=== PATIENT | female | born 1960 | race Caucasian/White ===

== ENCOUNTER 2018-07-05 23:46 | Emergency (ER) | payer SELFPAY ==
[2018-07-06] MEDS ORDERED: HYDROCODONE/APAP 7.5/325 MG TAB ONE (00:30)
--- NOTE | 2018-07-06 00:50 | ER ---
Nurse's Notes [facility] Name: Jessica Estrada Age: 58 yrs Sex: Female : 1960 Arrival Date: 07/05/2018 Time: 23:47 Bed 15 Private MD: Diagnosis: Left closed radial head fracture Presentation: 07/05 23:50 Presenting complaint: Patient states: Left arm and elbow pain sustained from fall while cc3 skating this evening. Care prior to arrival: None. Mechanism of Injury: Fall while skating. Trauma event details: Injury occurred in the [facility]. 23:50 Acuity: SASCHA 3 cc3 23:50 Method Of Arrival: Ambulatory cc3 23:50 Transition of care: patient was not received from another setting of care. Onset of cc3 symptoms was July 05, 2018. Risk Assessment: Do you want to hurt yourself or someone else? Patient reports no desire to harm self or others. 23:50 Initial Sepsis Screen: Does the patient meet any 2 criteria? No. Patient's initial cc3 sepsis screen is negative. Does the patient have a suspected source of infection? No. Patient's initial sepsis screen is negative. Triage Assessment: 23:50 General: Appears in no apparent distress. uncomfortable, Behavior is calm, cooperative, cc3 appropriate for age. Pain: Complains of pain in left arm, left elbow Pain currently is 8 out of 10 on a pain scale. Quality of pain is described as aching. EENT: Ear canal clear on bilaterally Sclera/Cornea are clear in bilaterally Nares are clear Oral mucosa is moist. Throat is clear bilaterally with gag reflex present. Neuro: Level of Consciousness is awake, alert, obeys commands, Oriented to person, place, time, situation, Appropriate for age. Cardiovascular: Denies chest pain, Patient's skin is warm and dry. Respiratory: Airway is patent Respiratory effort is even, unlabored, Respiratory pattern is regular, symmetrical. GI: Abdomen is round non-distended. : No signs and/or symptoms were reported regarding the genitourinary system. Derm: No signs and/or symptoms reported regarding the dermatologic system. Musculoskeletal: Circulation, motion, and sensation intact. Range of motion: limited in left arm, left elbow Reports pain in left arm, left elbow. Trauma Activation: Physician: ED Physician; Name: ; Notified At: ; Arrived At: Physician: General Surgeon; Name: ; Notified At: ; Arrived At: Physician: Radiology; Name: ; Notified At: ; Arrived At: Physician: Respiratory; Name: ; Notified At: ; Arrived At: Physician: Lab; Name: ; Notified At: ; Arrived At: 23:50 was not activated cc3 Historical: - Allergies: 23:50 No Known Allergies; cc3 - Home Meds: 23:50 atorvastatin oral oral once daily [Active]; aspirin 81 mg Oral chew 1 tab once daily cc3 [Active]; Meclizine Oral 3 times per day [Active]; - PMHx: 23:50 spinal; heart stents in 2016; cc3 - PSHx: 23:50 foot surgery; right ankle surgery; rotator cuff surgery; cc3 - Immunization history: Last tetanus immunization: unknown. - Social history:: Smoking status: Patient uses tobacco products, smokes one-half pack cigarettes per day. - Ebola Screening: : No symptoms or risks identified at this time. Screenin:50 Abuse screen: Denies threats or abuse. Denies injuries from another. Nutritional cc3 screening: No deficits noted. Tuberculosis screening: No symptoms or risk factors identified. Fall Risk Ambulatory Aid- None/Bed Rest/Nurse Assist (0 pts). Gait- Normal/Bed Rest/Wheelchair (0 pts) Mental Status- Oriented to own ability (0 pts). Primary Survey: 23:50 NO uncontrolled hemorrhage observed. A: The patient is alert. Airway: patent, No cc3 supplemental oxygen in use on arrival. Oral cavity: clear, gag reflex present, Trachea midline. Breathing/Chest: Respiratory pattern: regular, Respiratory effort: spontaneous, unlabored, Breath sounds: clear, bilaterally. Chest inspection: symmetrical rise and fall of the chest. Circulation: Heart tones present. Disability Alert. Exposure/Environment: All clothing and personal items were removed. Forensic evidence collection is not deemed to be indicated at this time. Items placed in patient belonging bag. There is no evidence of uncontrolled external bleeding. Obvious injury(ies) are noted at this time: left arm and elbow pain A warming method has been applied: A warm blanket has been provided to the patient. 07/06 00:15 Reassessment Airway Airway Patent Breathing/Chest Respiratory pattern Regular cc3 Respiratory effort Spontaneous Unlabored Breath sounds Clear Chest inspection Symmetrical Circulation Heart tones Present Disability Alert. Secondary Survey: 00:15 HEENT: Head No injury/deformity Face No injury/deformity Eyes: No injury or deformity cc3 noted. to bilateral eyes. Ears: clear bilaterally. Nose: clear to bilateral nares. Throat: No injury or deformity noted. is clear with gag reflex present. Gastrointestinal: Abdomen is soft, non-distended. : No signs and/or symptoms were reported regarding the genitourinary system. Musculoskeletal: Circulation, motion, and sensation intact. Range of motion: limited in left arm, left elbow. Assessment: 07/05 23:50 General: Appears in no apparent distress. uncomfortable, Behavior is calm, cooperative, cc3 appropriate for age. Pain: Complains of pain in left arm, left elbow Pain currently is 8 out of 10 on a pain scale. Quality of pain is described as aching. Neuro: Level of Consciousness is awake, alert, obeys commands, Oriented to person, place, time, situation, Appropriate for age. EENT: No signs and/or symptoms were reported regarding the EENT system. Cardiovascular: Denies chest pain, Patient's skin is warm and dry. Respiratory: Airway is patent Trachea midline Respiratory effort is even, unlabored, Respiratory pattern is regular, symmetrical. GI: Abdomen is round non-distended. : No signs and/or symptoms were reported regarding the genitourinary system. Derm: No signs and/or symptoms reported regarding the dermatologic system. Musculoskeletal: Circulation, motion, and sensation intact. Range of motion: limited in left arm, left elbow. 07/06 00:30 Reassessment: Patient appears in no apparent distress at this time. Patient and/or cc3 family updated on plan of care and expected duration. Pain level reassessed. Patient is alert, oriented x 3, equal unlabored respirations, skin warm/dry/pink. 01:00 Reassessment: Patient appears in no apparent distress at this time. Patient and/or cc3 family updated on plan of care and expected duration. Pain level reassessed. Patient is alert, oriented x 3, equal unlabored respirations, skin warm/dry/pink. Dr. Craig discharged home the patient with prescription given. No IV cannula in situ. Patient left ER vitally stable and ambulatory with her daughter. Patient states feeling better. Vital Signs: 07/05 23:50 BP 174 / 90; Pulse 63; Resp 19 S; Temp 98.1(O); Pulse Ox 98% on R/A; Weight 81.65 kg cc3 (R); Height 5 ft. 6 in. (167.64 cm) (R); Pain 8/10; 07/06 00:50 BP 163 / 89; Pulse 63; Resp 19 S; Pulse Ox 98% on R/A; cc3 07/05 23:50 Body Mass Index 29.05 (81.65 kg, 167.64 cm) cc3 [place] Coma Score: 07/05 23:50 Eye Response: spontaneous(4). Verbal Response: oriented(5). Motor Response: obeys cc3 commands(6). Total: 15. Trauma Score (Adult): 23:50 Eye Response: spontaneous(1); Verbal Response: oriented(1); Motor Response: obeys cc3 commands(2); Systolic BP: > 89 mm Hg(4); Respiratory Rate: 10 to 29 per min(4); [place] Score: 15; Trauma Score: 12 ED Course: 23:47 Patient arrived in ED. am2 23:50 Masoud Craig MD is Attending Physician. ps1 23:50 Arm band placed on right wrist. Patient notified of wait time. cc3 23:50 Patient has correct armband on for positive identification. Bed in low position. Call cc3 light in reach. Side rails up X 1. Pulse ox on. NIBP on. 23:50 Patient maintains SpO2 saturation greater than 95% on room air. cc3 23:50 Thermoregulation: warm blanket given to patient. cc3 23:55 Alicja Johns is Primary Nurse. cc3 07/06 00:10 Triage completed. cc3 00:45 Gustavo Mcclain MD is Referral Physician. ps1 00:47 X-ray completed. Portable x-ray completed in exam room. Patient tolerated procedure kw well. 00:48 Humerus Left XRAY In Process Unspecified. EDMS 00:48 Forearm Left XRAY In Process Unspecified. EDMS 01:00 No provider procedures requiring assistance completed. Patient did not have IV access cc3 during this emergency room visit. Administered Medications: 00:17 Drug: [place] (7.5 mg-325 mg) 1 tabs Route: PO; cc3 00:46 Follow up: Response: No adverse reaction cc3 Intake: 00:17 PO: 200ml (Water); Total: 200ml. cc3 Outcome: 00:49 Discharge ordered by . ps1 01:00 Discharged to home ambulatory, with family. cc3 01:00 Condition: stable 01:00 Discharge instructions given to patient, family, Instructed on discharge instructions, follow up and referral plans. medication usage, Demonstrated understanding of instructions, follow-up care, medications, Prescriptions given X 2. 01:00 Patient's length of stay was not longer than 2 hours. cc3 01:16 Patient left the ED. cc3 Signatures: Dispatcher [employer] EDMS Cesia Langford Amanda am2 Masoud Craig MD MD ps1 Alicja Johns cc3 Corrections: (The following items were deleted from the chart) 02:13 00:30 BP 163 / 89; Pulse 63bpm; Resp 19bpm; Spontaneous; Pulse Ox 98% RA; cc3 cc3
--- NOTE | 2018-07-06 00:50 | EDPHYS ---
Physician Documentation [facility] Name: Jessica Estrada Age: 58 yrs Sex: Female : 1960 Arrival Date: 07/05/2018 Time: 23:47 Bed 15 Private MD: ED Physician Masoud Craig HPI: 07/05 23:58 This 58 yrs old Female presents to ER via Unassigned with complaints of Fall ps1 Injury, Elbow Injury, Arm Pain. 23:58 Patient was roller skating and FOOSH. Now has pain in wrist and elbow. No obvious ps1 deformity. Pain rated as moderate and worse with movement. Not on blood thinners. Did not hit head or have LOC. . Historical: - Allergies: 23:50 No Known Allergies; cc3 - Home Meds: 23:50 atorvastatin oral oral once daily [Active]; aspirin 81 mg Oral chew 1 tab once daily cc3 [Active]; Meclizine Oral 3 times per day [Active]; - PMHx: 23:50 spinal; heart stents in 2016; cc3 - PSHx: 23:50 foot surgery; right ankle surgery; rotator cuff surgery; cc3 - Immunization history: Last tetanus immunization: unknown. - Social history:: Smoking status: Patient uses tobacco products, smokes one-half pack cigarettes per day. - Ebola Screening: : No symptoms or risks identified at this time. ROS: 23:58 Constitutional: Negative for fever, chills, and weight loss, Eyes: Negative for injury, ps1 pain, redness, and discharge, ENT: Negative for injury, pain, and discharge, Cardiovascular: Negative for chest pain, palpitations, and edema, Respiratory: Negative for shortness of breath, cough, wheezing, and pleuritic chest pain, Abdomen/GI: Negative for abdominal pain, nausea, vomiting, diarrhea, and constipation, Back: Negative for injury and pain, Skin: Negative for injury, rash, and discoloration, Neuro: Negative for headache, weakness, numbness, tingling, and seizure. 23:58 MS/extremity: Positive for decreased range of motion, tenderness, of the right wrist and right elbow. Exam: 23:58 Constitutional: This is a well developed, well nourished patient who is awake, alert, ps1 and in no acute distress. Head/Face: Normocephalic, atraumatic. Eyes: Pupils equal round and reactive to light, extra-ocular motions intact. Lids and lashes normal. Conjunctiva and sclera are non-icteric and not injected. ENT: Nares patent. No nasal discharge, no septal abnormalities noted. Tympanic membranes are normal and external auditory canals are clear. Oropharynx with no redness, swelling, or masses, exudates, or evidence of obstruction, uvula midline. Mucous membranes moist. Chest/axilla: Normal chest wall appearance and motion. Nontender with no deformity. No lesions are appreciated. Cardiovascular: Regular rate and rhythm. No gallops, murmurs, or rubs. Normal PMI, no JVD. No pulse deficits. Respiratory: Lungs have equal breath sounds bilaterally, clear to auscultation and percussion. No rales, rhonchi or wheezes noted. No increased work of breathing, no retractions or nasal flaring. Skin: Warm, dry with normal turgor. Normal color with no rashes, no lesions, and no evidence of cellulitis. Neuro: Awake and alert, GCS 15, oriented to person, place, time, and situation. Cranial nerves II-XII grossly intact. Sensory grossly intact. 23:58 Musculoskeletal/extremity: Extremities: grossly normal except: noted in the right elbow and right wrist: pain. Vital Signs: 23:50 BP 174 / 90; Pulse 63; Resp 19 S; Temp 98.1(O); Pulse Ox 98% on R/A; Weight 81.65 kg cc3 (R); Height 5 ft. 6 in. (167.64 cm) (R); Pain 8/10; 07/06 00:50 BP 163 / 89; Pulse 63; Resp 19 S; Pulse Ox 98% on R/A; cc3 07/05 23:50 Body Mass Index 29.05 (81.65 kg, 167.64 cm) cc3 [place] Coma Score: 07/05 23:50 Eye Response: spontaneous(4). Verbal Response: oriented(5). Motor Response: obeys cc3 commands(6). Total: 15. Trauma Score (Adult): 23:50 Eye Response: spontaneous(1); Verbal Response: oriented(1); Motor Response: obeys cc3 commands(2); Systolic BP: > 89 mm Hg(4); Respiratory Rate: 10 to 29 per min(4); [place] Score: 15; Trauma Score: 12 MDM: 23:58 Data reviewed: vital signs, nurses notes. ps1 07/06 00:49 Patient medically screened. ps1 07/05 23:57 Order name: Humerus Left XRAY ps1 07/05 23:57 Order name: Forearm Left XRAY ps1 07/06 01:16 Order name: Sling; Complete Time: 01:16 cc3 Administered Medications: 00:17 Drug: [place] (7.5 mg-325 mg) 1 tabs Route: PO; cc3 00:46 Follow up: Response: No adverse reaction cc3 Disposition: 07/06/18 00:49 Discharged to Home. Impression: Left closed radial head fracture. - Condition is Stable. - Discharge Instructions: Radial Head Fracture. - Prescriptions for Tylenol- Codeine #3 300-30 mg Oral Tablet - take 2 tablet by ORAL route every 6 hours As needed; 30 tablet. Zofran 4 mg Oral Tablet - take 1 tablet by ORAL route every 12 hours As needed; 20 tablet. - Medication Reconciliation Form, Thank You Letter, Antibiotic Education, Prescription Opioid Use form. - Follow up: Gustavo Mcclain MD; When: Upon discharge from the Emergency Department; Reason: Further diagnostic work-up, Recheck today's complaints. Follow up: Emergency Department; When: As needed; Reason: Worsening of condition. - Problem is new. - Symptoms are unchanged. Signatures: Dispatcher [employer] EDMS Masoud Craig MD MD ps1 Alicja Johns cc3 Corrections: (The following items were deleted from the chart) 01:16 00:49 07/06/2018 00:49 Discharged to Home. Impression: Left closed radial head cc3 fracture. Condition is Stable. Forms are Medication Reconciliation Form, Thank You Letter, Antibiotic Education, Prescription Opioid Use. Follow up: Gustavo Mcclain; When: Upon discharge from the Emergency Department; Reason: Further diagnostic work-up, Recheck today's complaints. Follow up: Emergency Department; When: As needed; Reason: Worsening of condition. Problem is new. Symptoms are unchanged. ps1
--- NOTE | 2018-07-06 08:01 | RAD REPORT ---
EXAM DESCRIPTION: RAD - Humerus Left - 07/06/2018 12:47 am CLINICAL HISTORY: Left arm pain status post fall FINDINGS: Mildly displaced fracture involves the radial head. No dislocation seen
--- NOTE | 2018-07-06 08:02 | RAD REPORT ---
EXAM DESCRIPTION: RAD - Forearm Left - 07/06/2018 12:47 am CLINICAL HISTORY: Left forearm pain status post injury FINDINGS: Mildly displaced fracture involves the radial head. No dislocation seen
== END 2018-07-06 01:16 | disposition home or self-care (01) ==
LOC: ER 23:46
DX: S52.122A Displaced fracture of head of left radius, initial encounter for closed fracture (principal); W19.XXXA Unspecified fall, initial encounter; Y93.51 Activity, roller skating (inline) and skateboarding; Y92.9 Unspecified place or not applicable; Z79.82 Long term (current) use of aspirin; Z95.818 Presence of other cardiac implants and grafts; F17.210 Nicotine dependence, cigarettes, uncomplicated
CPT/HCPCS: 99284